=== PATIENT | male | born 1965 | race Caucasian/White ===

== ENCOUNTER 2023-05-03 02:41 | Emergency (ER) | payer MEDICAID, SELFPAY ==
[2023-05-03 02:48] VITALS: BP 139/97; PULSE 75; RESP 18; TEMP 36.6; O2SAT 98; BMI 25.0
--- NOTE | 2023-05-03 03:25 | ED.GENADULT ---
HPI - General Adult General Chief complaint: Abdominal Pain Stated complaint: sharp pain left side abdomen Time Seen by Provider: 05/03/23 02:47 History of Present Illness HPI narrative: L abd pain. woke up sweating. states no constip/ diarrhea. states his normal minor nausea, nothing new. hx couple hernia sx. By the time I go to assess Mr. Cosme, he is pain-free having been able to rest. He describes years of intense pulsing pains that can occur and various areas of his body intermittently in lasting briefly. Apparently has not really been evaluated for them yet. As he is now without pain he does not feel he needs to be assessed further and plans to follow up with primary care provider. Related Data Home Medications Medication Instructions Recorded Confirmed empagliflozin 10 mg tablet 10 mg PO DAILY 05/03/23 05/03/23 (Jardiance) insulin aspart U-100 100 unit/mL 0 - 50 unit subcut DAILY 05/03/23 05/03/23 (3 mL) subcutaneous pen (Novolog FlexPen U-100 Insulin aspart) insulin glargine 100 unit/mL (3 58 unit subcut DAILY 05/03/23 05/03/23 mL) subcutaneous pen (Lantus Solostar U-100 Insulin) Allergies Allergy/AdvReac Type Severity Reaction Status Date / Time No Known Drug Allergies Allergy Verified 05/03/23 02:52 PFSH PFS Social History Smoking Status: Never smoker Second hand tobacco smoke exposure: No How often do you have a drink containing alcohol: never How often do you have six or more drinks on one occasion: Never AUDIT-C Alcohol total score: 0 Non-prescribed substance use: denies use Exam Const: Vital Signs, click to edit/add: Vital Signs - 24 hr 05/03/23 02:48 05/03/23 04:45 Temperature 97.8 F 97.8 F Pulse Rate [Left P ulse Oximeter] 75 75 Respiratory Rate 18 18 Blood Pressure [Ri ght Upper Arm] 139/97 H 139/97 H Pulse Oximetry 98 Oxygen Delivery Me thod Room Air Course Vital Signs Vital signs: Initial Vital Signs Temperature 97.8 F 05/03/23 02:48 Temperature Source Temporal Artery Scan 05/03/23 02:48 Pulse Rate 75 05/03/23 02:48 Respiratory Rate 18 05/03/23 02:48 Blood Pressure 139/97 H 05/03/23 02:48 Blood Pressure Mean 111 H 05/03/23 02:48 Blood Pressure Position Sitting 05/03/23 02:48 Pulse Oximetry 98 05/03/23 02:48 Oxygen Delivery Method Room Air 05/03/23 02:48 Vital Signs Temperature 97.8 F 05/03/23 02:48 Pulse Rate 75 05/03/23 02:48 Respiratory Rate 18 05/03/23 02:48 Blood Pressure 139/97 H 05/03/23 02:48 Pulse Oximetry 98 05/03/23 02:48 Oxygen Delivery Method Room Air 05/03/23 02:48 Temperature 97.8 F 05/03/23 04:45 Pulse Rate 75 05/03/23 04:45 Respiratory Rate 18 05/03/23 04:45 Blood Pressure 139/97 H 05/03/23 04:45 Pulse Oximetry 98 05/03/23 02:48 Oxygen Delivery Method Room Air 05/03/23 02:48 Discharge Plan Discharge Patient Disposition: Left Without Being Seen
[2023-05-03 04:10] VITALS: BP 125/84; PULSE 75; RESP 18; TEMP 36.6; O2SAT 98
--- NOTE | 2023-05-03 04:10 | ED.NURSE ---
pt left without seeing MD. pt. did not sign refusal of services form prior to leaving ED. pt. amulatory and pain free. pt. left with .
[2023-05-03 04:45] VITALS: BP 139/97; PULSE 75; RESP 18; TEMP 36.6
== END 2023-05-03 04:51 | disposition left against medical advice (07) ==
PROVIDERS: Emergency Provider Family Medicine; PCP Family Medicine
DX: Z53.21 Procedure and treatment not carried out due to patient leaving prior to being seen by health care provider (principal)
CPT/HCPCS: 99281

== ENCOUNTER 2023-06-06 13:43 | Outpatient (CLI) | payer MEDICAID, SELFPAY | END 2023-06-06 13:44 | disposition home or self-care (01) | PROVIDERS: PCP Family Medicine; Visit Provider Family Medicine | DX: Q23.1 Congenital insufficiency of aortic valve (principal) | CPT/HCPCS: 93306 ==